=== PATIENT | female | born 1990 | race Caucasian/White ===

== ENCOUNTER 2018-12-13 12:54 | Emergency (ER) | payer BC ==
[~2018-12-13] VITALS: Ht 154.9 cm; Wt 81.6 kg
[2018-12-13 13:14] VITALS: PULSE 75; Ht 154.9 cm; Wt 81.6 kg
--- NOTE | 2018-12-13 16:38 | ERD ---
ER Documentation Chief Complaint Chief Complaint AP, VOMITTING - LMP - 08/11/19 ROS All systems reviewed and are negative except as per history of present illness. Allergies Allergies: Coded Allergies: No Known Allergy (Unverified , 12/13/18) PMhx/Soc Medical and Surgical Hx: pt denies Surgical Hx History of Surgery: Yes (C/S) Anesthesia Reaction: No Hx Alcohol Use: No Hx Substance Use: No Hx Tobacco Use: No Smoking Status: Never smoker Physical Exam Vitals Vital Signs Date Temp Pulse Resp B/P (MAP) Pulse Ox O2 O2 Flow FiO2 Time Delivery Rate 12/13/18 98.4 75 18 109/55 100 13:14 (73) Physical Exam Const: No acute distress Head: Atraumatic Eyes: Normal Conjunctiva ENT: Normal External Ears, Nose and Mouth. Neck: Full range of motion. No meningismus. Resp: Clear to auscultation bilaterally Cardio: Regular rate and rhythm, no murmurs Abd: Soft, non tender, non distended. Normal bowel sounds Skin: No petechiae or rashes Back: No midline or flank tenderness Ext: No cyanosis, or edema Neur: Awake and alert Psych: Normal Mood and Affect Result Diagram: 12/13/18 1420 12/13/18 1420 Results 24 hrs Laboratory Tests Test 12/13/18 14:20 White Blood Count 10.5 10^3/ul Red Blood Count 3.60 10^6/ul Hemoglobin 10.7 g/dl Hematocrit 32.8 % Mean Corpuscular Volume 91.1 fl Mean Corpuscular Hemoglobin 29.7 pg Mean Corpuscular Hemoglobin Concent 32.6 g/dl Red Cell Distribution Width 13.2 % Platelet Count 217 10^3/UL Mean Platelet Volume 11.4 fl Immature Granulocytes % 0.800 % Neutrophils % 67.7 % Lymphocytes % 24.0 % Monocytes % 6.4 % Eosinophils % 0.7 % Basophils % 0.4 % Nucleated Red Blood Cells % 0.0 /100WBC Immature Granulocytes # 0.080 10^3/ul Neutrophils # 7.1 10^3/ul Lymphocytes # 2.5 10^3/ul Monocytes # 0.7 10^3/ul Eosinophils # 0.1 10^3/ul Basophils # 0.0 10^3/ul Nucleated Red Blood Cells # 0.0 10^3/ul Urine Color YELLOW Urine Clarity SLIGHTLY CLOUDY Urine pH 7.0 Urine Specific [place] 1.011 Urine Ketones NEGATIVE mg/dL Urine Nitrite NEGATIVE mg/dL Urine Bilirubin NEGATIVE mg/dL Urine Urobilinogen NEGATIVE mg/dL Urine Leukocyte Esterase NEGATIVE Dominik/ul Urine Microscopic RBC 1 /HPF Urine Microscopic WBC 2 /HPF Urine Squamous Epithelial Cells FEW /HPF Urine Hemoglobin NEGATIVE mg/dL Urine Glucose NEGATIVE mg/dL Urine Total Protein NEGATIVE mg/dl Sodium Level 136 mmol/L Potassium Level 4.3 mmol/L Chloride Level 102 mmol/L Carbon Dioxide Level 25 mmol/L Anion Gap 9 Blood Urea Nitrogen 7 mg/dl Creatinine 0.49 mg/dl Est Glomerular Filtrat Rate mL/min > 60 mL/min Glucose Level 75 mg/dl Calcium Level 9.3 mg/dl Total Bilirubin 0.1 mg/dl Direct Bilirubin 0.00 mg/dl Indirect Bilirubin 0.1 mg/dl Aspartate Amino Transf (AST/SGOT) 14 IU/L Alanine Aminotransferase (ALT/SGPT) 15 IU/L Alkaline Phosphatase 72 IU/L Total Protein 6.8 g/dl Albumin 3.6 g/dl Globulin 3.20 g/dl Albumin/Globulin Ratio 1.12 Departure Diagnosis: Primary Impression: Abdominal pain Abdominal location: unspecified location Qualified Codes: R10.9 - Unspecified abdominal pain Additional Impression: Shortness of breath Condition: Fair Patient Instructions: Comfort Tips During , : Your Second Trimester Changes Referrals: [facility] YOU HAVE RECEIVED A MEDICAL SCREENING EXAM AND THE RESULTS INDICATE THAT YOU DO NOT HAVE A CONDITION THAT REQUIRES URGENT TREATMENT IN THE EMERGENCY DEPARTMENT. FURTHER EVALUATION AND TREATMENT OF YOUR CONDITION CAN WAIT UNTIL YOU ARE SEEN IN YOUR DOCTORS OFFICE WITHIN THE NEXT 1-2 DAYS. IT IS YOUR RESPONSIBILITY TO MAKE AN APPOINTMENT FOR FOLOW-UP CARE. IF YOU HAVE A PRIMARY DOCTOR --you should call your primary doctor and schedule an appointment IF YOU DO NOT HAVE A PRIMARY DOCTOR YOU CAN CALL OUR PHYSICIAN REFERRAL HOTLINE AT IF YOU CAN NOT AFFORD TO SEE A PHYSICIAN YOU CAN CHOSE FROM THE FOLLOWING [facility] [address] [place] [facility] [address] [facility] [address] [facility] [address] [facility] [address] [facility]. [facility] [address] Additional Instructions: Call your primary care doctor TOMORROW for an appointment during the next 1-2 days.See the doctor sooner or return here if your condition worsens before your appointment time. Follow up with EMERGENCY ROOM PHYSICIAN ASSISTANT TATIANA FORBES DO Dec 13, 2018 16:38
[2018-12-13 17:18] VITALS: BP 116/62; RESP 18
== END 2018-12-13 17:20 | disposition home or self-care (01) ==
LOC: FTE 12:54
DX: O26.892 Other specified pregnancy related conditions, second trimester (principal); R10.9 Unspecified abdominal pain; R06.02 Shortness of breath; Z3A.18 18 weeks gestation of pregnancy
CPT/HCPCS: 76805; 80053; 81001; 85025; 93005; 93970; Z7502; 81003

== ENCOUNTER 2019-04-15 09:57 | Outpatient (CLI) | payer BC ==
[~2019-04-15] VITALS: Ht 154.9 cm; Wt 92.1 kg
[~2019-04-15 09:57] MED LIST: METF-480 PO; METF-849 PO; NOVO3I SC; PNV11TAB PO
[2019-04-15 10:09] VITALS: BP 112/72; PULSE 86; RESP 18; Ht 154.9 cm; Wt 92.1 kg
[2019-04-15] MEDS ORDERED: LACTATED RINGER'S 1,000 ML IV SCH (10:30)
--- NOTE | 2019-04-15 14:34 | PN ---
Triage Information Date/Time April 15, 2019 Reason for visit: Uterine contractions Weeks of Gestation 35 weeks and 3 days /Para 3 para 1 Diabetes: none Hypertention: none Additional information 29-year-old G3, P1 with IUP at 35 weeks and 3 days with history of GDM A2 had been seen in N[facility] clinic and due to contractions was sent for rule out labor. Patient denies any leaking of fluid, vaginal bleeding, or decreased movement. Objective Vital Signs Date Temp Pulse Resp B/P (MAP) Pulse Ox O2 O2 Flow FiO2 Time Delivery Rate 04/15/19 97.8 86 18 112/72 10:09 (85) Heart Rate: 130's Heart Rate Comments Category 1 Exam General appearance: Alert and oriented x4 does not appear to be in any acute distress Abdomen: Soft, gravid, fundal height consider gestational age NST: Category 1 contractions every 5 to 9 minutes, MORGAN: 14.7 BPP: 8/8 After IV hydration patient felt significant improvement UA consistent with UTI Laboratory Tests Test 04/15/19 10:40 04/15/19 11:32 Urine Color YELLOW Urine Clarity SLIGHTLY CLOUDY A Urine pH 7.0 Urine Specific [place] 1.010 Urine Ketones NEGATIVE Urine Nitrite NEGATIVE Urine Bilirubin NEGATIVE Urine Urobilinogen NEGATIVE Urine Leukocyte Esterase TRACE A Urine Microscopic RBC 3 Urine Microscopic WBC 11 H Urine Squamous Epithelial Cells MODERATE Urine Bacteria FEW A Urine Mucus FEW A Urine Hemoglobin NEGATIVE Urine Glucose NEGATIVE Urine Total Protein NEGATIVE Bedside Glucose 78 Results/Medications Results 24 hrs Laboratory Tests Test 04/15/19 10:40 04/15/19 11:32 Urine Color YELLOW Urine Clarity SLIGHTLY CLOUDY A Urine pH 7.0 Urine Specific [place] 1.010 Urine Ketones NEGATIVE Urine Nitrite NEGATIVE Urine Bilirubin NEGATIVE Urine Urobilinogen NEGATIVE Urine Leukocyte Esterase TRACE A Urine Microscopic RBC 3 Urine Microscopic WBC 11 H Urine Squamous Epithelial Cells MODERATE Urine Bacteria FEW A Urine Mucus FEW A Urine Hemoglobin NEGATIVE Urine Glucose NEGATIVE Urine Total Protein NEGATIVE Bedside Glucose 78 Medications Current Medications Lactated Ringer's 1,000 ml @ 250 mls/hr Q4H IV Last administered on 04/15/19at 11:34; Admin Dose 250 MLS/HR; Start 04/15/19 at 10:30 Disposition: Discharge Assessment/Plan IUP at 35 weeks and 3 days GDM, A2 Patient contractions due to UTI, after hydration symptoms significantly impr kathy. No clear evidence of labor Patient was comfortable after hydration. She can be discharged in stable condition. Given prescription with Keflex 4 times daily for 7 days with adequate p.o. hydration and follow-up within 48 hours with primary OB office or sooner as needed Patient verbalized understanding. All questions answered to patient with satisfaction Recommended to take unsweetened cranberry drink with adequate p.o. hydration and kick count and follow-up with NST clinic as a scheduled Patient verbalized understanding. All questions answered to patient with satisfaction. JANAY LANDON MD Apr 15, 2019 14:34
--- NOTE | 2019-04-15 16:06 | TRIAGE ---
OB Triage Datetime Report Generated by CPN: 04/15/2019 16:05 Datetime: 04/15/2019 13:15 Stage of : OB Triage Datetime: 04/15/2019 12:20 Labor Evaluation Frequency: 0 Monitor Mode: External Pattern: Normal: <= 5 Contractions in 10 Minutes Resting Tone Haugen: Relaxed Heart Rate FHR Baseline Rate: 135 Monitor Mode: External US Variability: Moderate 6-25 bpm Accelerations: 10X10 Decelerations: None Category: Category I Pain Assessment Pain Scale: 0 Pain Presence: None/Denies Pain Type: N/A Pain Goal: 3 Pain Relief Measures: Comfort Measures Datetime: 04/15/2019 11:32 Bedside Blood Glucose: 78 Datetime: 04/15/2019 11:29 Labor Evaluation Frequency: 5-6 Monitor Mode: External Duration (sec)2399: 50-60 Quality: Mild Pattern: Normal: <= 5 Contractions in 10 Minutes Resting Tone Haugen: Relaxed Heart Rate FHR Baseline Rate: 135 Monitor Mode: External US Variability: Moderate 6-25 bpm Accelerations: 10X10 Decelerations: None Category: Category I Pain Assessment Pain Scale: 0 Pain Presence: None/Denies Pain Type: N/A Pain Goal: 3 Pain Relief Measures: Comfort Measures Datetime: 04/15/2019 10:50 Stage of : OB Triage Datetime: 04/15/2019 10:26 Stage of : OB Triage Datetime: 04/15/2019 10:05 Stage of : OB Triage Assessment Type: Triage Maternal Assessment Level of Consciousness: Keenly Alert, Responsive DTR's/Clonus: DTRs 2+; No Clonus Headache: Denies Blurred Vision: No Respiratory Effort: Unlabored; Regular Rhythm; Equal Expansion Breath Sounds, Left: Clear and Equal Breath Sounds, Right: Clear and Equal Nausea/Vomiting: Denies RUQ Epigastric Pain: Denies Facial Edema: None Temperature Route: Axillary Fall Risk Assessment History of Falling: (0) No Secondary Diagnosis: (0) No Ambulatory Aid: (0) Bedrest/Nurse Assist IV Therapy: (0) No Gait: (0) Normal/Bedrest/Immobile Mental Status: (0) Oriented to Own Ability Fall Score: 0 Fall Risk Score Definition: No Risk: No action required Monitor Mode: External (Annotations: APPLIED) Monitor Mode: External US Pain Assessment Pain Scale: 0 Pain Presence: None/Denies Pain Type: Pressure Pain Goal: 3 Pain Relief Measures: Comfort Measures Datetime: 04/15/2019 10:04 Time of Arrival: 04/15/2019 09:45 EGA: 35.3 Arrived By: Ambulatory Arrived From: Other Unit in Hospital Chief Complaint: FROM NST C/O PRESSURE, HAVING UC'S IN NST, DENIES BLEEDING, OR LEAKING Movement: Present Contractions: Irregular Rupture of Membranes: Denies Vaginal Bleeding: None Vaginal Discharge: Denies Recent Sexual Intercouse: Denies Abdominal Trauma: Not Applicable Patient Complaints: Cramping Time Provider Notified: 04/15/2019 10:26 Provider Notified: MADDI Initial Plan: MONITOR, BPP, U/A, C_S, IV HYDRATION
== END 2019-04-15 14:40 | disposition home or self-care (01) ==
LOC: OBT 09:57 → L-D 09:59 → OBT 14:40
PROVIDERS: ATTEND Obstetrics & Gynecology
DX: O62.9 Abnormality of forces of labor, unspecified (principal); Z3A.35 35 weeks gestation of pregnancy
CPT/HCPCS: 36415; 76818; 81001; 82962; 87086; 96360; 96361; J7120; Z7500; G0463

== ENCOUNTER 2019-04-26 05:20 | Inpatient (IN) | payer BC ==
[~2019-04-26] VITALS: Ht 154.9 cm; Wt 92.9 kg
[2019-04-26 05:46] VITALS: Ht 154.9 cm; Wt 92.9 kg
[2019-04-26] MEDS ORDERED: OXYTOCIN 30 UNITS/LR 500 ML IV SCH ×2 (06:00→09:45)
[2019-04-26] MEDS ORDERED: MISOPROSTOL 200 MCG TAB PR PRN ×2 (06:00→10:00)
[2019-04-26] MEDS ORDERED: CARBOPROST 250 MCG INJ IM PRN ×2 (06:00→10:00)
[2019-04-26] MEDS ORDERED: CEFAZOLIN 2 GM/50 ML (PMX) 50 ML IVPB SCH ×2 (06:00→10:00)
[2019-04-26] MEDS ORDERED: OXYTOCIN 30 UNITS/LR 500 ML IV PRN ×2 (06:00→10:00)
[2019-04-26] MEDS ORDERED: METHYLERGONOVINE 0.2 MG INJ IM PRN ×2 (06:00→10:00)
[2019-04-26] MEDS: LACTATED RINGER'S 1,000 ML IV SCH ×4 (06:15→23:15)
[2019-04-26] MEDS ORDERED: CITRIC ACID/NA CITRATE 30 ML CUP PO ONE (07:30)
[2019-04-26] MEDS ORDERED: ONDANSETRON 4 MG INJ IV STA (07:30)
[2019-04-26] MEDS ORDERED: morphine SULFATE/PF (10 MG/10 ML) INJ ONE (07:34)
[2019-04-26] MEDS ORDERED: METOCLOPRAMIDE 10 MG INJ ONE (07:34)
[2019-04-26] MEDS ORDERED: OXYTOCIN 10 UNIT INJ ONE (07:34)
[2019-04-26] MEDS ORDERED: DEXAMETHASONE 4 MG/ML 1 ML INJ ONE (09:11)
[2019-04-26] MEDS ORDERED: LABETALOL HCL 20MG INJ IV PRN (10:00)
[2019-04-26] MEDS ORDERED: TRIMETHOBENZAMIDE 100 MG/ML VIAL IM PRN ×2 (10:00)
[2019-04-26] MEDS ORDERED: FENTAnyl 50 MCG/ML VIAL IV PRN ×3 (10:00)
[2019-04-26] MEDS ORDERED: DIPHENHYDRAMINE 50 MG INJ IV PRN ×2 (10:00)
[2019-04-26] MEDS ORDERED: IPRATROPIUM (NEB) 0.5 MG/2.5 ML AMP HHN PRN (10:00)
[2019-04-26] MEDS ORDERED: ONDANSETRON 4 MG INJ IV PRN ×2 (10:00)
[2019-04-26] MEDS ORDERED: NALBUPHINE HCL (10 MG/1 ML) INJ IV PRN (10:00)
[2019-04-26] MEDS ORDERED: HYDROmorphONE 1 MG/5 ML IV SYRINGE IV PRN ×3 (10:00)
[2019-04-26] MEDS ORDERED: NALOXONE (0.4 MG/ML) INJ IV PRN (10:00)
[2019-04-26] MEDS ORDERED: morphine 2 MG INJ IV PRN ×2 (10:00)
[2019-04-26] MEDS ORDERED: MIDAZOLAM 1 MG/ML 2 ML INJ IV PRN (10:00)
[2019-04-26] MEDS ORDERED: MEPERIDINE 25 MG INJ IV PRN (10:00)
[2019-04-26] MEDS ORDERED: EPHEDrine 25 MG/5 ML SYG IV PRN (10:00)
[2019-04-26] MEDS ORDERED: hydrALAzine 20 MG INJ IV PRN (10:00)
[2019-04-26] MEDS ORDERED: ALBUTEROL 0.083% (NEB) 2.5 MG/3 ML AMP HHN PRN (10:00)
[2019-04-26] MEDS ORDERED: NACL 0.9% 3 ML SYG IV SCH (10:00)
[2019-04-26] MEDS: KETOROLAC 30 MG INJ IV PRN ×2 (10:46→21:34)
[2019-04-26 12:15] VITALS: BP 128/68; PULSE 69; RESP 16
[2019-04-26 13:25] VITALS: BP 127/63; PULSE 73; RESP 16
[2019-04-26] MEDS ORDERED: ACCU-CHEK XX SCH (13:30)
[2019-04-26] MEDS ORDERED: IBUPROFEN 800 MG TAB PO SCH (14:00)
[2019-04-26 15:55] VITALS: BP 99/55; PULSE 69; RESP 18
[2019-04-26] MEDS: CEFAZOLIN 2 GM/50 ML (PMX) 50 ML IVPB SCH (17:24)
[2019-04-26] MEDS: ACCU-CHEK XX SCH ×2 (17:35→21:58)
[2019-04-26 21:00] VITALS: BP 117/59; PULSE 75; RESP 18
[2019-04-27 00:45] VITALS: BP 116/59; PULSE 70; PULSE 76; RESP 18
[2019-04-27] MEDS: CEFAZOLIN 2 GM/50 ML (PMX) 50 ML IVPB SCH ×2 (01:44→08:55)
[2019-04-27 03:45] VITALS: BP 99/60; PULSE 74; RESP 18
[2019-04-27] MEDS: KETOROLAC 30 MG INJ IV PRN (04:16)
[2019-04-27] MEDS: LACTATED RINGER'S 1,000 ML IV SCH (06:38)
[2019-04-27 08:00] VITALS: BP 118/72; PULSE 77; RESP 18
[2019-04-27] MEDS: ACCU-CHEK XX SCH ×4 (08:45→21:00)
[2019-04-27] MEDS: OXYCODONE/ACETAMINOPHEN (5/325) TAB PO PRN ×4 (09:22→23:57)
[2019-04-27] MEDS: LANOLIN HPA 1 PKT TOP PRN (11:31)
[2019-04-27] MEDS: IBUPROFEN 800 MG TAB PO SCH ×2 (13:13→21:29)
[2019-04-27 16:00] VITALS: BP 111/57; PULSE 98; RESP 16
[2019-04-27 20:00] VITALS: BP 111/84; PULSE 95; RESP 18
[2019-04-27] MEDS: FERROUS SULFATE (EC) 325 MG TAB PO SCH (21:28)
[2019-04-28 04:25] VITALS: BP 112/80; PULSE 90; RESP 18
[2019-04-28] MEDS: IBUPROFEN 800 MG TAB PO SCH ×3 (05:49→21:37)
[2019-04-28] MEDS: OXYCODONE/ACETAMINOPHEN (5/325) TAB PO PRN ×3 (07:31→20:07)
[2019-04-28 08:16] VITALS: BP 130/65; PULSE 77; RESP 18
[2019-04-28] MEDS: ACCU-CHEK XX SCH ×4 (08:17→21:00)
[2019-04-28] MEDS: FERROUS SULFATE (EC) 325 MG TAB PO SCH ×2 (09:58→21:37)
[2019-04-28] MEDS: SENNA TAB PO SCH ×2 (12:44→21:37)
[2019-04-28] MEDS: MAGNESIUM HYDROXIDE 30ML CUP PO SCH ×2 (12:44→21:37)
[2019-04-28 15:00] VITALS: RESP 18
[2019-04-28 17:07] VITALS: BP 121/79; PULSE 81; RESP 18
[2019-04-28 20:10] VITALS: BP 130/72; PULSE 78; RESP 18
[2019-04-29 02:39] VITALS: BP 106/68; PULSE 70; RESP 18
[2019-04-29] MEDS: IBUPROFEN 800 MG TAB PO SCH (06:12)
[2019-04-29] MEDS: ACCU-CHEK XX SCH ×2 (07:35→12:30)
[2019-04-29 09:55] VITALS: BP 113/62; PULSE 85; RESP 20
[2019-04-29] MEDS: FERROUS SULFATE (EC) 325 MG TAB PO SCH (10:02)
[2019-04-29] MEDS: MAGNESIUM HYDROXIDE 30ML CUP PO SCH (10:02)
[2019-04-29] MEDS: SENNA TAB PO SCH (10:02)
[2019-04-29] MEDS ORDERED: BISACODYL 10 MG SUPP PR ONE (10:30)
[2019-04-29] MEDS: LANOLIN HPA 1 PKT TOP PRN (10:34)
== END 2019-04-29 13:40 | disposition home or self-care (01) | DRG 788 ==
LOC: L-D 05:20 → PP1 11:54
PROVIDERS: ADMIT Obstetrics & Gynecology; ATTEND Obstetrics & Gynecology
PROC: 10D00Z1 Extraction of Products of Conception, Low, Open Approach (ICD-10-PCS; principal; 2019-04-26 07:30)
DX: O65.5 Obstructed labor due to abnormality of maternal pelvic organs (principal); O34.211 Maternal care for low transverse scar from previous cesarean delivery; O24.429 Gestational diabetes mellitus in childbirth, unspecified control; Z3A.37 37 weeks gestation of pregnancy; Z37.0 Single live birth
CPT/HCPCS: 82947; 82962; 85025; 85610; 85730; 86592; 86850; 86900; 86901; 99464; J0690; J1100; J1885; J2270; J2274; J2405; J2590; J2765; J7120